=== PATIENT | male | born 1995 | race Hispanic/Latino ===

== ENCOUNTER 2023-07-31 20:18 | Emergency (ER) | payer OTHER, MEDICAID, SELFPAY ==
[2023-07-31] VITALS (8 sets, daily range): BP systolic 128–163; BP diastolic 78–104; PULSE 90–102; RESP 13–24; TEMP 36.1; O2SAT 94–99; BMI 29.4
--- NOTE | 2023-07-31 21:28 | DI.CT.S_ITS ---
PROCEDURE: CT HEAD/BRAIN WO CON INDICATIONS: laceration L parietal scalp, large hematoma, etoh TECHNIQUE: Noncontrast 4.5 mm thick angled axial sections acquired from the foramen magnum to the vertex, with coronal and sagittal reformats. For radiation dose reduction, the following was used: automated exposure control, adjustment of mA and/or kV according to patient size. COMPARISON: None. FINDINGS: Image quality: Diagnostic. CSF spaces: Basal cisterns are patent. No extra-axial fluid collections. Ventricles are normal in size and shape. Brain: There is trace blood products deep to the depressed calvarial fracture, favored to be subarachnoid. No midline shift. No intracranial masses. Jackson-white matter interface is normal. Skull and face: Depressed left parietal calvarial fracture with approximately 6 mm of depression. Overlying scalp hematoma is present. Sinuses: Visualized sinuses and mastoids are clear. IMPRESSION: Depressed left parietal fracture with trace associated subarachnoid hemorrhage. Possible mild hypoattenuation within the adjacent brain parenchyma, may represent contusion. Findings discussed with Dr. Ahuja at the time of dictation. Dictated by: Raffaele Jeronimo M.D. on 07/31/2023 at 22:00 Approved by: Raffaele Jeronimo M.D. on 07/31/2023 at 22:05
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
[2023-07-31] MEDS: TET,DIPH,PERTUSS(ACELL),VAC/PF 0.5 ML SYRINGE IM (21:38)
[2023-07-31] MEDS: LIDOCAINE 1% W/EPI 4 ML INJ (21:39)
[2023-07-31 21:47] LABS: Add Manual Diff / Slide Review NO; Basophils Absolute Auto 0 /uL (0-100); Basophils Percent Auto 0.5 % (0-2); Eosinophils Absolute Auto 200 /uL (0-450); Eosinophils Percent Auto 2.7 % (2-4); Hemoglobin 15.9 g/dL (13.5-17.5); Lymphocytes Absolute Auto 1100 /uL (1100-4500); Lymphocytes Percent Auto 15.1 % (25-40); Mean Corpuscular HGB Conc 34.6 % (30-36); Mean Corpuscular Hemoglobin 32.2 PG (26-34); Mean Corpuscular Volume 92.9 fL (80-100); Monocytes Absolute Auto 400 /uL (0-900); Neutrophils Absolute Auto 5800 /uL (1500-7000); Neutrophils Percent Auto 76.7 % (50-75); Platelet Count 352 X10^3/uL (150-400); Red Blood Cell Count 4.95 X10^6/uL (4.5-5.9); Red Cell Distribution Width 14.4 % (11.6-14.8); White Blood Cell Count 7.6 X10^3/uL (4.5-11.0)
[2023-07-31 21:53] LABS: Prothrombin Time 10.9 SECONDS (9.4-12.5)
[2023-07-31 21:56] LABS: PTT Partial Thromboplastin Tim 38 SECONDS (25.1-36.5)
[2023-07-31 21:59] LABS: Alanine Aminotransferase 26 IU/L (<50); Albumin 4.1 g/dL (3.5-5.0); Albumin Globulin Ratio 1.1 (1.0-2.8); Alkaline Phosphatase 58 U/L (38-126); Aspartate Aminotransferase 35 IU/L (17-59); BUN Creatinine Ratio 7.8 (6-22); Bilirubin Total 0.5 mg/dL (0.2-1.3); Blood Urea Nitrogen 5 mg/dL (9-20); Calcium 8.8 mg/dL (8.4-10.2); Carbon Dioxide 26 mmol/L (22-32); Chloride 108 mmol/L (98-107); Estimated Glomerular Filt Rate > 60 mL/min (>60); Globulin 3.9 g/dL (1.7-4.1); Glucose 128 mg/dL (70-100); HEMOLYSIS < 15 (0-50); Lipase 76 U/L (23-300); Potassium 3.7 mmol/L (3.4-5.1); Sodium 142 mmol/L (137-145)
--- NOTE | 2023-07-31 22:15 | PC.NURSE ---
2204- faxed facesheet and pushed images to [facility] in hopes to transfer pt
[2023-07-31 22:25] LABS: Ethanol (ETOH) 137 mg/dL
[2023-07-31 22:42] LABS: UR Morphine/Opiate cutoff 300 Negative (Negative); Ur Creatinine Normal (Normal); Ur Specific Gravity Normal (Normal); Urine Amphetamines Negative (Negative); Urine Barbiturates Negative (Negative); Urine Benzodiazepines Negative (Negative); Urine Cocaine Negative (Negative); Urine MDMA Negative (Negative); Urine Methadone Negative (Negative); Urine Methamphetamines Negative (Negative); Urine Oxycodone Negative (Negative); Urine Phencyclidine Negative (Negative); Urine Tetrahydrocannabinol Positive (Negative); Urine Tricyclic Antidepressant Negative (Negative); Urine pH Normal (Normal)
[2023-07-31] MEDS: CEFAZOLIN 2 GM/100 ML PREMIX 100 ML IV (22:52)
[2023-07-31 23:01] LABS: COVID19 -Nasal RAPID Negative (Negative)
[2023-08-01] VITALS (7 sets, daily range): BP systolic 129–188; BP diastolic 65–94; PULSE 103–123; RESP 20–32; O2SAT 95–99
--- NOTE | 2023-08-01 01:30 | DI.CT.S_ITS ---
PROCEDURE: CT HEAD/BRAIN WO CON INDICATIONS: repeat for eval change in sah TECHNIQUE: Noncontrast 4.5 mm thick angled axial sections acquired from the foramen magnum to the vertex, with coronal and sagittal reformats. For radiation dose reduction, the following was used: automated exposure control, adjustment of mA and/or kV according to patient size. COMPARISON: [facility], CT, CT HEAD/BRAIN WO CON, 07/31/2023, 21:44. FINDINGS: Image quality: Diagnostic. CSF spaces: Basal cisterns are patent. No extra-axial fluid collections. Ventricles are normal in size and shape. Brain: Few foci of subarachnoid hemorrhage adjacent to the depressed calvarial fracture are similar in appearance to prior. Possible hypoattenuation in the adjacent brain parenchyma may represent contusion. No midline shift. No intracranial masses. Jackson-white matter interface is normal. Skull and face: Again seen depressed left parietal calvarial fracture with overlying hematoma and scalp madhu. Sinuses: Visualized sinuses and mastoids are clear. IMPRESSION: Stable exam compared to prior. Stable depressed calvarial fracture with small hemorrhage and contusion. Dictated by: Raffaele Jeronimo M.D. on 08/01/2023 at 1:55 Approved by: Raffaele Jeronimo M.D. on 08/01/2023 at 1:57
[2023-08-01] MEDS: ONDANSETRON 4 MG ODT PREPACK 1 BOTTLE MISC (02:46)
== END 2023-08-01 02:49 | disposition home or self-care (01) ==
PROVIDERS: Emergency Provider Emergency Medicine; PCP Pediatrics
DX: S06.6X0A Traumatic subarachnoid hemorrhage without loss of consciousness, initial encounter (principal); S02.91XA Unspecified fracture of skull, initial encounter for closed fracture; S01.01XA Laceration without foreign body of scalp, initial encounter; R00.0 Tachycardia, unspecified; W22.8XXA Striking against or struck by other objects, initial encounter; Z23 Encounter for immunization
CPT/HCPCS: 12002; 36415; 70450; 72125; 80053; 80305; 80320; 83690; 85025; 85610; 85730; 87635; 90471; 96365; 99284; 99285; 90715; J0690

== ENCOUNTER 2024-03-09 18:11 | Emergency (ER) | payer OTHER, MEDICAID, SELFPAY ==
[2024-03-09] VITALS (8 sets, daily range): BP systolic 152–172; BP diastolic 90–107; PULSE 110–129; RESP 18–22; TEMP 36.8; O2SAT 96–99; BMI 28.7
--- NOTE | 2024-03-09 18:27 | EKG_ITS ---
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
[2024-03-09 18:45] LABS: Add Manual Diff / Slide Review NO; Basophils Absolute Auto 0 /uL (0-100); Basophils Percent Auto 0.9 % (0-2); Eosinophils Absolute Auto 100 /uL (0-450); Eosinophils Percent Auto 1.2 % (2-4); Hematocrit 42.7 % (41-53); Hemoglobin 14.8 g/dL (13.5-17.5); Lymphocytes Absolute Auto 800 /uL (1100-4500); Lymphocytes Percent Auto 17.9 % (25-40); Mean Corpuscular HGB Conc 34.7 % (30-36); Mean Corpuscular Hemoglobin 31.5 PG (26-34); Mean Corpuscular Volume 90.7 fL (80-100); Monocytes Absolute Auto 300 /uL (0-900); Monocytes Percent Auto 6.6 % (3-14); Neutrophils Absolute Auto 3300 /uL (1500-7000); Neutrophils Percent Auto 73.4 % (50-75); Platelet Count 247 X10^3/uL (150-400); Red Blood Cell Count 4.71 X10^6/uL (4.5-5.9); Red Cell Distribution Width 18.6 % (11.6-14.8); White Blood Cell Count 4.5 X10^3/uL (4.5-11.0)
--- NOTE | 2024-03-09 18:49 | PC.NURSE ---
Visual Acuity Note - Patient has known visual discrepancy in his left eye that he would sometimes wear glasses for
[2024-03-09 18:50] LABS: Prothrombin Time 11.9 SECONDS (9.4-12.5)
[2024-03-09 18:52] LABS: PTT Partial Thromboplastin Tim 31 SECONDS (25.1-36.5)
[2024-03-09] MEDS: SODIUM CHLORIDE 0.9% 500 ML 1000 ML IV (18:53)
[2024-03-09] MEDS: TET,DIPH,PERTUSS(ACELL),VAC/PF 0.5 ML SYRINGE IM (18:53)
[2024-03-09 18:54] LABS: Lactate (Lactic Acid) 3.3 mmol/L (0.7-2.1)
[2024-03-09 18:55] LABS: Alanine Aminotransferase 36 IU/L (<50); Albumin 4.5 g/dL (3.5-5.0); Albumin Globulin Ratio 1.5 (1.0-2.8); Alkaline Phosphatase 69 U/L (38-126); Aspartate Aminotransferase 80 IU/L (17-59); Bilirubin Total 0.7 mg/dL (0.2-1.3); Calcium 9.4 mg/dL (8.4-10.2); Carbon Dioxide 24 mmol/L (22-32); Chloride 98 mmol/L (98-107); Estimated Glomerular Filt Rate > 60 mL/min (>60); Ethanol (ETOH) 214 mg/dL; Globulin 3.1 g/dL (1.7-4.1); Glucose 126 mg/dL (70-100); HEMOLYSIS < 15 (0-50); Lipase 89 U/L (23-300); Potassium 3.5 mmol/L (3.4-5.1); Sodium 134 mmol/L (137-145); Total Protein 7.6 g/dL (6.3-8.2)
[2024-03-09 18:56] LABS: BUN Creatinine Ratio 2.3 (6-22); Blood Urea Nitrogen < 2 mg/dL (9-20)
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
[2024-03-09 20:18] LABS: Reflexed Lactate in 2 Hours Y
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
== END 2024-03-09 20:41 | disposition home or self-care (01) ==
PROVIDERS: Emergency Provider Emergency Medicine; PCP Pediatrics
DX: S00.12XA Contusion of left eyelid and periocular area, initial encounter (principal); S00.11XA Contusion of right eyelid and periocular area, initial encounter; S00.81XA Abrasion of other part of head, initial encounter; I10 Essential (primary) hypertension; R00.0 Tachycardia, unspecified; M54.2 Cervicalgia; Y04.2XXA Assault by strike against or bumped into by another person, initial encounter; Z23 Encounter for immunization
CPT/HCPCS: 36415; 70450; 70486; 71045; 72125; 80053; 80320; 83605; 83690; 85025; 85610; 85730; 90471; 93005; 96360; 99284; 90715

== ENCOUNTER → 2025-03-23 17:05 | Outpatient (CLI) | payer OTHER, MEDICAID, SELFPAY ==
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
== END ==
LOC: MRI 17:05
PROVIDERS: PCP Family Medicine; Referring Provider Orthopaedic Surgery; Visit Provider Orthopaedic Surgery
DX: S83.511A Sprain of anterior cruciate ligament of right knee, initial encounter (principal); S83.411A Sprain of medial collateral ligament of right knee, initial encounter; S83.421A Sprain of lateral collateral ligament of right knee, initial encounter; M22.41 Chondromalacia patellae, right knee; M23.51 Chronic instability of knee, right knee; M23.91 Unspecified internal derangement of right knee; M25.461 Effusion, right knee
CPT/HCPCS: 73721